=== PATIENT | female | born 1945 | race Caucasian/White ===

== ENCOUNTER 2022-08-18 18:45 | Observation (INO) | payer MEDICARE, SELFPAY ==
[2022-08-18 19:02] VITALS: BP 118/89; PULSE 97; RESP 16; TEMP 36.8; O2SAT 92; BMI 17.2
--- NOTE | 2022-08-18 19:46 | XR_ITS ---
PROCEDURE INFORMATION: Exam: XR Chest Exam date and time: 08/18/2022 8:00 PM Age: 76 years old Clinical indication: Shortness of breath TECHNIQUE: Imaging protocol: Radiologic exam of the chest. Views: 1 view. COMPARISON: No relevant prior studies available. FINDINGS: Tubes, catheters and devices: Electronic device within the left upper quadrant. Lungs: No consolidation. Pleural spaces: No pneumothorax. Heart/Mediastinum: No cardiomegaly. Bones/joints: Degenerative changes of the shoulders. IMPRESSION: No acute findings.
[2022-08-18 19:51] VITALS: PULSE 90
--- NOTE | 2022-08-18 21:05 | ECG_ITS ---
APPROVED REPORT Exam: Resting ECG HR:91 bpm ECG Measurements Heart Rate 91 AXES QRSd 90 QRS -41 QT 349 T -80 QTc 398 Conclusion ATRIAL FLUTTER/TACHYCARDIA LEFT AXIS DEVIATION [QRS AXIS < -30] SEPTAL MYOCARDIAL INFARCTION , OF INDETERMINATE AGE [40+ ms Q WAVE IN V1/V2] MODERATE T-WAVE ABNORMALITY, CONSIDER INFERIOR ISCHEMIA [-0.1+ mV T-WAVE IN II/aVF] ABNORMAL ECG UNCONFIRMED REPORT Electronically signed by : Aniket Mike MD 08/19/2022 19:56:57
[2022-08-18 21:07] LABS: Basophils # 0.1 K/mm3 (0-0.2); Eosinophils % 0.3 % (0.1-12.0); Hematocrit 37.8 % (37.0-47.0); Hemoglobin 12.4 g/dL (12.2-16.2); Lymphocytes # 0.9 K/mm3 (0.7-4.5); Mean Corpuscular HGB Conc 32.9 g/dL (31.8-35.4); Mean Corpuscular Hemoglobin 30.2 pg (27.0-31.2); Mean Corpuscular Volume 91.9 fl (81-99); Mean Platelet Volume 9.2 fl (7.4-10.4); Monocytes # 0.5 K/mm3 (0.1-1.0); Monocytes % 6.4 % (1.7-9.3); Neutrophils # 5.6 K/mm3 (1.8-7.8); Neutrophils % 80.2 % (37.0-80.0); Platelet Count 301 K/mm3 (142-424); Red Blood Count 4.11 M/mm3 (4.20-5.40)
--- NOTE | 2022-08-18 21:12 | EXP.HP ---
History of Present Illness *Admission Date: 08/18/22 *Reason for visit:: NSTEMI *History of present illness: With past medical history of diabetes, hypertension who presents as a transfer from [facility] for further evaluation of NSTEMI. Patient reports approximately 5 days ago her and her both were exposed to the flu and were seen at a walk-in clinic to be evaluated for flu testing. At that time she denied constitutional symptoms and states they were getting tested to make sure they did not have it. At that time they were diagnosed with flu A. Over the course of the next several days she developed nausea vomiting and inability to keep food and fluid down. She presented back to the emergency department today for further evaluation of her nausea vomiting. She endorses being prescribed Tamiflu but has not been able to take it due to her nausea. She denies any shortness of breath but does endorse mild cough. She denies chest pain or palpitations or syncope. Work-up at the outside hospital reveals mildly elevated high-sensitivity troponin of 246. EKG notable for A. fib with RVR with a rate of 105 with T wave inversions in lead to [address] Mesa was consulted prior to transfer here and recommended Brilinta, Lovenox and Lopressor and transfer for further evaluation. On arrival here she is oxygenating well on room air. Able to speak in full sentences without distress. She denies any chest pain or shortness of breath. Does elicit cough and continued nausea. On my exam she is a poor historian and unable to provide many details regarding her medical care. She does endorse being diabetic and states that all of her doctors are in [place]. She is unable to tell me if she has a heart history or what amount of cardiac testing she has had prior to this. Does appear that she is on metoprolol, losartan and fenofibrate at home. She also endorses stimulator in her back that is used for pain. Unable to provide further details regarding her medical care. [facility] Disclaimer: The information contained in this section may have been updated after the patient was seen, as this information can be updated by other users. Social History Smoking Status: Smoker, status unknown alcohol intake: never current occupational status: previously employed Travel in the last 8 weeks: None Review of Systems Constitutional Constitutional: Reports system reviewed and no additional complaints, except as documented Eyes Eyes: Reports system reviewed and no additional complaints, except as documented ENT Ears, Nose, Mouth, and Throat: Reports system reviewed and no additional complaints, except as documented *Cardiovascular Cardiovascular: Reports system reviewed and no additional complaints, except as documented *Respiratory Respiratory: Reports system reviewed and no additional complaints, except as documented *Gastrointestinal Gastrointestinal: Reports system reviewed and no additional complaints, except as documented *Genitourinary Genitourinary: Reports system reviewed and no additional complaints, except as documented *Musculoskeletal Musculoskeletal: Reports system reviewed and no additional complaints, except as documented Integumentary/Breasts Skin/Breast: Reports system reviewed and no additional complaints, except as documented *Neurologic Neurologic: Reports system reviewed and no additional complaints, except as documented Psychiatric Psychiatric: Reports system reviewed and no additional complaints, except as documented Endocrine Endocrine: Reports system reviewed and no additional complaints, except as documented Meds Home Medications and Allergies New Prescriptions to Start Prescriptions: Exam Data for Last 24 hours Vital signs and Labs for Last 24 Hours: Temp Pulse Resp BP Pulse Ox 98.3 F 97 H 16 118/89 92 L 08/18/22 19:02 08/18/22 19:02 08/18/22 1
[2022-08-18 21:20] LABS: Chloride 104 mmol/L (98-107); Potassium 4.2 mmoL/L (3.5-5.1); Sodium 134 mmol/L (136-145)
[2022-08-18 21:23] LABS: Anion Gap 9.2 mEq/L (5-15); Blood Urea Nitrogen 31 mg/dl (7-17); Carbon Dioxide 25 mmol/L (22.0-30.0); Creatinine Clearance Estimated 35 mL/min (50-200); Estimated Glomerular Filt Rate 54 ml/min (>60); GFR (African American) 65 ML/MIN (>60)
[2022-08-18 21:24] LABS: Calcium 9.8 mg/dl (8.4-10.2); Chol/HDL Ratio 5.1 (1-3.5); Cholesterol 162 mg/dl (140-200); Glucose 143 mg/dl (74-100); HDL Cholesterol 32 mg/dl (40-60); INR 1.05 (0.9-1.1); Magnesium 1.5 mg/dl (1.6-2.3); Prothrombin Time 11.3 seconds (10.1-12.5); Triglycerides 236 mg/dl (30-150); VLDL Cholesterol 47 mg/dL (0-40)
[2022-08-18 21:35] LABS: Direct LDL Cholesterol 83.97 mg/dL (100-129)
[2022-08-18 21:43] LABS: Hemoglobin A1C 5.7 % (4.0-6.0)
[2022-08-18 21:44] LABS: Troponin I 0.21 ng/ml (0.00-0.034)
[2022-08-18 21:48] LABS: POC Glucose,Bedside 134 (70-110)
--- NOTE | 2022-08-18 22:08 | PC.NURSE ---
MED REC NOT COMPLETED AT THIS TIME DUE TO PT NOT BEING ABLE TO TELL ME HER MEDICATIONS THAT SHE TAKES. STATED HER WAS GOING TO BRING HER MEDICATION IN THE MORNING.
[2022-08-19] VITALS: BP 111/76; PULSE 90; PULSE 97; RESP 20; TEMP 37.1; O2SAT 98
[2022-08-19 00:36] LABS: Troponin I 0.19 ng/ml (0.00-0.034)
[2022-08-19 04:00] VITALS: BP 126/80; PULSE 90; PULSE 97; RESP 18; TEMP 37.2; O2SAT 96
[2022-08-19 04:36] LABS: Basophils % 0.5 % (0.1-2.0); Eosinophils % 0.2 % (0.1-12.0); Hematocrit 34.4 % (37.0-47.0); Hemoglobin 11.4 g/dL (12.2-16.2); Lymphocytes # 1.4 K/mm3 (0.7-4.5); Lymphocytes % 21.7 % (10-50); Mean Corpuscular HGB Conc 33.1 g/dL (31.8-35.4); Mean Corpuscular Hemoglobin 29.7 pg (27.0-31.2); Mean Corpuscular Volume 89.6 fl (81-99); Monocytes # 0.4 K/mm3 (0.1-1.0); Neutrophils # 4.8 K/mm3 (1.8-7.8); Neutrophils % 71.6 % (37.0-80.0); Platelet Count 318 K/mm3 (142-424); Red Blood Count 3.84 M/mm3 (4.20-5.40); White Blood Count 6.7 K/mm3 (4.8-10.8)
[2022-08-19 04:52] LABS: Anion Gap 8.6 mEq/L (5-15); Blood Urea Nitrogen 28 mg/dl (7-17); Calcium 9.7 mg/dl (8.4-10.2); Carbon Dioxide 23 mmol/L (22.0-30.0); Chloride 108 mmol/L (98-107); Creatinine Clearance Estimated 35 mL/min (50-200); Estimated Glomerular Filt Rate 54 ml/min (>60); GFR (African American) 65 ML/MIN (>60); Magnesium 1.5 mg/dl (1.6-2.3); Potassium 3.6 mmoL/L (3.5-5.1); Sodium 136 mmol/L (136-145)
[2022-08-19 04:54] LABS: Glucose 94 mg/dl (74-100)
[2022-08-19 05:00] VITALS: BMI 17.2
[2022-08-19 05:02] LABS: Troponin I 0.19 ng/ml (0.00-0.034)
--- NOTE | 2022-08-19 05:51 | PC.NURSE ---
NO ACUTE CHANGES OVER NIGHT. PT HAS SLEPT INTERMITTENTLY THIS SHIFT. AMBULATING WITH X1 ASSIST TO THE BR. LUNG SOUNDS ARE DIMINISHED BUT TOLERATING ROOM AIR WELL. A & O X4. REMAINS CONTROLLED A-FIB ON TELE. NO C/O CHEST PAIN OR SHORTNESS. OF BREATH. NO C/O NAUSEA OR VOMITING SINCE ARRIVING TO [facility]. CALL [place] WITHIN REACH.
[2022-08-19 05:55] LABS: POC Glucose,Bedside 90 (70-110)
--- NOTE | 2022-08-19 07:09 | HMH.PHAINT1 ---
Pharmacy Intervention Comments: Medication reconciliation completed via chart review and external fill history. -Jing Carvalho, PharmD Candidate 2022
--- NOTE | 2022-08-19 07:26 | PC.NURSE ---
PIPE COVERING MOLDER CALL AND STATED PT'S HEART RATE WAS IN THE 160'S. DR. HINDS AND DAY AND WOOD CRAFTSMAN NURSES WENT TO SEE PT. NON-SYMPTOMATIC AT THIS TIME. DR. HINDS STATED HE DID NOT WANT ANOTHER EKG AT THIS TIME.
[2022-08-19 08:00] VITALS: BP 137/77; PULSE 110; PULSE 62; RESP 20; TEMP 36.9; O2SAT 97
--- NOTE | 2022-08-19 08:47 | CA_ITS ---
APPROVED REPORT EXAM: Comprehensive 2D, Doppler, and color-flow Echocardiogram Commodities Trader: Sakina Gilman RVT Ht: 5 ft 4 in Wt: 103lbs BSA: 1.48 BP: 118/84 mmHg Indications: A-FIB,NSTEMI,RECENT FLU,GERD,HTN,DM,HLD TDS-BEST EXAM POSSIBLE 2D Dimensions LVOT 1.88 cm (M/F) 1.5-2.5 M-Mode Dimensions RVDd 1.08 cm (0.9-2.6) LA Diam 3.79 cm (1.9-4.0) LVDd 4.88 cm (3.5-5.7) Ao Diam 2.53 cm (2.0-3.7) LVDs 3.66 cm (3.5-5.7) IVSd 0.49 cm (0.6-1.1) PWd 0.49 cm (0.6-1.1) EF (Teich) 49.30% FS 25.00% EDV (Teich) 111.70 mL ESV (Teich) 56.60 mL LV Diastology MED E' 6.20 (< 7 cm/sec) LAT E' 6.80 (<10 cm/sec) Aortic Valve AO Peak GR. 1.90 mmHg Pulmonary Valve PV Peak Velocity 88.00 (50-150 cm/s) Tricuspid Valve TR P. Velocity 301.00 cm/s RAP Estimate 10.00 mmHg RVSP 46.30 mmHg Left Ventricle Left atrium is mildly enlarged, left ventricle is normal size mild concentric left ventricular hypertrophy, estimated ejection fraction approximately 50%, there is no obvious regional wall motion abnormality, endocardial surfaces are poorly visualized. Technically difficult study. Diastolic parameters are inconclusive. Right Ventricle Right atrium and right ventricle are mildly enlarged with normal contractility. Aortic Valve Aortic valve is minimally thickened and calcified without aortic stenosis or aortic insufficiency. Mitral Valve Mitral valve leaflets are minimally thickened, there is mild mitral regurgitation. Tricuspid Valve Tricuspid valve grossly normal, there is mild tricuspid regurgitation, calculated right ventricular systolic pressure is 38 mmHg. Pulmonic Valve Pulmonic valve is poorly visualized. Great Vessels Aortic root is normal size. Inferior vena cava is mildly dilated without significant inspiratory collapse. Pericardium No significant pericardial effusion noted. Conclusion 1. Mild biatrial enlargement, normal left ventricular size, mild concentric left ventricular hypertrophy, estimated ejection fraction 50% with no regional wall motion abnormality, endocardial surfaces are very poorly visualized, diastolic parameters are inconclusive. 2. Mildly enlarged right ventricle with normal contractility. 3. Mild mitral and tricuspid regurgitation, calculated right ventricular systolic pressure is approximately 38 mmHg. 4. No significant pericardial effusion noted. 5. Inferior vena cava is mildly dilated without significant inspiratory collapse. Electronically signed by : Willy Walsh MD 08/20/2022 06:01:51
--- NOTE | 2022-08-19 08:53 | EXP.CARD.CON ---
History of Present Illness History of Present Illness Consult date: 08/19/22 Requesting physician: Musa Castro Chief complaint: elevated trop, afib rvr, flu Additional Medical History:: Past Medical Hx HTN AFIB- not on OAC HLD DM History of present illness: 76-year-old white female with past medical history as listed above was transferred to this facility from [facility] emergency department yesterday for evaluation of NSTEMI, A. fib RVR, and influenza. Patient reports that she and her were diagnosed with influenza A at walk-in clinic on Friday. Patient was sent home on Tamiflu and report she was unable to take it due to nausea and vomiting. She reports continued worsening symptoms over the weekend, including nausea and vomiting, dry non-productive cough, and fatigue. Upon presentation to ER patient was found to be in A. fib RVR with a rate of 105. EKG showed T wave inversion in leads II, III and aVF. High-sensitivity troponin in ER was slightly elevated at 246. Dr. Mesa (cardiology) was consulted and recommended patient be transferred here for cardiology consult and be started on Brilinta, Lovenox, and Lopressor. Patient denies symptoms of chest pain or shortness of breath. Patient reports good functional capacity at home at baseline. Initial troponin at [facility] was 0.21, which has trended down to 0.19. Chest x-ray shows no acute finding. Labs significant as follows, RBC 3.84, hemoglobin 11.4 , hematocrit 34.4, creatinine 1.0, magnesium 1.5, LDL 83, triglycerides 236, hemoglobin A1c 5.7. Patient was given metoprolol 75 mg last night. Today remains A. fib with a rate of 62. Echo pending. Only complaints this morning is of fatigue. [facility] Disclaimer: The information contained in this section may have been updated after the patient was seen, as this information can be updated by other users. Medical History (Updated 08/19/22 @ 09:09 by Martha Negron APRN) Arrhythmia Atrial fibrillation Diabetes mellitus, type 2 History of gastroesophageal reflux (GERD) Hyperlipidemia Hypertension Pneumonia Urinary tract infection Surgical History (Updated 08/18/22 @ 21:39 by Ursula Escobedo RN) History of back surgery History of colonoscopy History of hysterectomy Family History (Updated 08/18/22 @ 21:39 by Ursula Escobedo RN) Other Family history of cancer Family history of diabetes mellitus type II Social History (Updated 08/18/22 @ 21:39 by Ursula Escobedo RN) Smoking Status: Former smoker alcohol intake: never current occupational status: retired Travel in the last 8 weeks: None Review of Systems Review of Systems Review of systems:: pertinent systems reviewed and negative unless documented below Constitutional Constitutional: Reports fatigue *Cardiovascular Cardiovascular: Denies chest pain and Denies dyspnea *Respiratory Respiratory: Reports cough and Denies dyspnea *Gastrointestinal Gastrointestinal: Reports nausea and Reports vomiting *Neurologic Neurologic: Reports system reviewed and no additional complaints, except as documented Endocrine Endocrine: Reports fatigue Exam Data for Last 24 hours Vital signs and Labs for Last 24 Hours: Temp Pulse Resp BP Pulse Ox 98.9 F 97 H 18 126/80 96 08/19/22 04:00 08/19/22 04:00 08/19/22 04:00 08/19/22 04:00 08/19/22 04:00 Laboratory Results - last 24 hr 08/18/22 20:57: WBC 7.0, RBC 4.11 L, Hgb 12.4, Hct 37.8, MCV 91.9, MCH 30.2, MCHC 32.9, RDW 14.0, Plt Count 301, MPV 9.2, Neut % (Auto) 80.2 H, Lymph % (Auto) 12.0, [place] % (Auto) 6.4, Eos % (Auto) 0.3, Baso % (Auto) 1.0, Neut # (Auto) 5.6, Lymph # (Auto) 0.9, [place] # (Auto) 0.5, Eos # (Auto) 0.0, Baso # (Auto) 0.1 08/18/22 20:57: PT 11.3, INR 1.05 08/18/22 20:57: Sodium 134 L, Potassium 4.2, Chloride 104, Carbon Dioxide 25, Anion Gap 9.2, BUN 31 H, Creatinine 1.00, Estimated Creat Clear 35, Estimated GFR 54 L, Est GFR ( Amer) 65, Glucose 143 H, Calcium 9
--- NOTE | 2022-08-19 09:13 | PC.NURSE ---
pt in room awake at this time
[2022-08-19 09:33] VITALS: BMI 17.2
[2022-08-19 11:13] LABS: Coronavirus 19, PCR Not Detected (NotDetected); Influenza B, PCR Not Detected (NotDetected)
[2022-08-19 11:29] LABS: POC Glucose,Bedside 98 (70-110)
--- NOTE | 2022-08-19 11:57 | EXP.DC.SUM ---
General Admission date:: 08/18/22 Discharge date: 08/19/22 HPI HPI HPI: Ivonne Gupta is a 76-year-old female with a past medical history of diabetes, hypertension and cardiac arrhythmia who presents as a transfer from [facility] for further evaluation of elevated troponin/NSTEMI in the setting of atrial fibrillation with RVR. Patient reports approximately 5 days ago her and her both were exposed to the flu and were seen at a walk-in clinic to be evaluated for flu testing. At that time she denied constitutional symptoms and states they were getting tested to make sure they did not have it. She tested positive for influenza A. Over the course of the next several days she developed nausea vomiting and inability to keep food and fluid down. She presented back to the emergency department today for further evaluation of her nausea vomiting. She endorses being prescribed Tamiflu but has not been able to take it due to her nausea. She denies any shortness of breath but does endorse mild cough. She denies chest pain or palpitations or syncope. Work-up at the outside hospital ED reveals mildly elevated high-sensitivity troponin of 246. EKG notable for A. fib with RVR with a rate of 105 with T wave inversions in lead to [address] Mesa cardiology was consulted prior to transfer and recommended Brilinta, Lovenox and Lopressor and transfer for further evaluation. On arrival here she is oxygenating well on room air. She is able to speak in full sentences without distress. She denies any chest pain or shortness of breath. She does elicit cough and continued nausea. On my exam she is a limited historian and unable to provide many details regarding her history of cardiac arrhythmia. She does endorse being diabetic and states that all of her doctors are in [place]. She is unable to tell me if she has a heart history or what amount of cardiac testing she has undergone previously. It does appear that she is on metoprolol, losartan and fenofibrate at home. She also endorses stimulator in her back that is used for pain. Hospital Course Hospital Course Hospital Course: The patient is admitted to the medical unit with telemetry monitoring. Cardiology is consulted. Her troponin trend remained flat. She was assessed with type II TX secondary to her A. fib with RVR. She remained in atrial fibrillation with improved rate control. Cardiology recommended an echocardiogram which identified an ejection fraction of 40 to 45%. Her beta-maddie dose was increased and she was started on factor Xa inhibitor therapy for anticoagulation. The patient identified improvement and inquired about discharge home. Cardiology recommended an outpatient ischemic work-up and close follow-up. They plan to see her within 2 to 3 days of discharge. A follow-up visit with her PCP was scheduled for September 04 at 9:30 AM. Patient education is provided, her medications are reviewed and she will be discharged home to the care of her family. I spent 35 minutes in [id number] time with the patient and nursing staff concerning the discharge process. We discussed the admitting diagnoses and hospital course. We discussed identified improvement and the patient's desire to be discharged. We reviewed inpatient studies and imaging. The patient voiced understanding on the importance of follow-up with her primary care provider and foreign broadcast specialist. The patient plans to be compliant with the medication regimen prescribed and follow-up appointments. She understands that she can return to the emergency department with any sudden changes or concerns. Exam Data for Last 24 hours Vital signs and Labs for Last 24 Hours: Temp Pulse Resp BP Pulse Ox 98.4 F 62 20 137/77 97 08/19/22 08:00 08/19/22 08:00 08/19/22 08:00 08/19/22 08:00 08/19/22 08:00 Laboratory Results - last 24 hr 08/18/22 20:57: WBC 7.0, RBC 4.11 L, Hgb 12.4, Hct 37.8, MCV
[2022-08-19 12:00] VITALS: BP 130/76; PULSE 78; PULSE 90; RESP 20; TEMP 36.7; O2SAT 97
[2022-08-19 12:32] LABS: Influenza A, PCR Detected (NotDetected)
--- NOTE | 2022-08-19 13:19 | HMH.PHAINT1 ---
Pharmacy Intervention Comments: Discharge counseling completed at bedside with the patient. Discussed new medications (aspirin, metoprolol tartrate, xarelto, and magnesium oxide), continued medications, and discontinued medications (ibuprofen, metoprolol succinate, and oseltamivir). Overviewed indication and possible side effects/mitigation strategies for each new medication. Patient verbalized understanding and has no questions or concerns at this time.
--- NOTE | 2022-08-19 13:45 | PC.NURSE ---
pt sitting in chair awake
--- NOTE | 2022-08-20 13:46 | CARE MANAGER ---
Contacted patient related to hospital discharge. She states she did pick out hand her medication. She does feel worse today, but was able to go to the grocery. She is aware of follow up appointments and denies any questions or concerns.
== END 2022-08-19 14:55 | disposition home or self-care (01) ==
PROVIDERS: Nurse Practitioner Acute Care; Admitting Provider Family Medicine; PCP Family Medicine; Visit Provider Family Medicine
DX: J11.1 Influenza due to unidentified influenza virus with other respiratory manifestations (principal); E11.9 Type 2 diabetes mellitus without complications; I48.91 Unspecified atrial fibrillation; Z79.84 Long term (current) use of oral hypoglycemic drugs; Z20.822 Contact with and (suspected) exposure to COVID-19; I21.A1 Myocardial infarction type 2; R77.8 Other specified abnormalities of plasma proteins; Z79.899 Other long term (current) drug therapy; I10 Essential (primary) hypertension
CPT/HCPCS: G0378; G0379; 36415; 71045; 80048; 80061; 82962; 83036; 83735; 84484; 85025; 85610; 93005; 93306; C9803; J3475; U0003; U0005